=== PATIENT | male | born 2000 | race Caucasian/White ===

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

== ENCOUNTER 2019-01-18 10:26 | Emergency (ER) | payer OTHER ==
[~2019-01-18] VITALS: Ht 182.9 cm; Wt 68.0 kg
[~2019-01-18 10:26] MED LIST: HYOS0.1283 SL; ONDA4TAB8 SL
--- OUTSIDE RECORDS SUMMARY | 2019-01-18 10:33 | XMS REPORT ---
Author Author PO GRACE Organization [facility] Address [address] [place] [address] Care Team Providers Care Geochemist Name Role Phone PO GRACE Unavailable PROBLEMS Type Condition ICD9-CM Code [id number] Code Onset Dates Condition Status SNOMED Code Problem Gastritis, bile acid reflux K29.60 Active 06854227 ALLERGIES No Information ENCOUNTERS Encounter Location Date Diagnosis [facility] [id number] [place] [phone] 15 Sep, 2017 [facility] [address] [address] 14 Sep, 2017 Gastritis, bile acid reflux K29.60 ; Acute bilateral low back pain without sciatica M54.5 and Abdominal pain, generalized R10.84 [facility] [id number] [place] [phone] 06 Sep, 2017 Right groin hernia K40.90 [facility] [id number] [place] [phone] 06 Sep, 2017 Unilateral recurrent inguinal hernia without obstruction or gangrene K40.91 [facility] [id number] [place] [phone] December, IMMUNIZATIONS No Known Immunizations SOCIAL HISTORY Never Assessed REASON FOR VISIT XRay Results PLAN OF CARE VITAL SIGNS MEDICATIONS Unknown Medications RESULTS No Results PROCEDURES No Known procedures INSTRUCTIONS MEDICATIONS ADMINISTERED No Known Medications MEDICAL (GENERAL) HISTORY Type Description Date Medical History Postural orthostatic tachycardia syndrome Medical History Bulging lumbar disc Medical History Ruptured disk Medical History Depression in pediatric patient Medical History History of post traumatic stress disorder Surgical History hernia repair 1999 Hospitalization History [facility] bulging disk 2016
--- OUTSIDE RECORDS SUMMARY | 2019-01-18 10:33 | XMS REPORT ---
Author Author GILMAR STARK [facility] Address [address] [place] [address] Care Team Providers Care Credentials Specialist Name Role Phone GILMAR STARK Unavailable PROBLEMS Type Condition ICD9-CM Code [id number] Code Onset Dates Condition Status SNOMED Code Problem Gastritis, bile acid reflux K29.60 Active [id number] ALLERGIES No Information ENCOUNTERS Encounter Location Date Diagnosis [place] [address] [phone] 15 Sep, 2017 [place] [address] [address] 14 Sep, 2017 Gastritis, bile acid reflux K29.60 ; Acute bilateral low back pain without sciatica M54.5 and Abdominal pain, generalized R10.84 [facility] [address] [phone] 06 Sep, 2017 Right groin hernia K40.90 [facility] [id number] [place] [phone] 06 Sep, 2017 Unilateral recurrent inguinal hernia without obstruction or gangrene K40.91 [facility] [address] [address] December, IMMUNIZATIONS No Known Immunizations SOCIAL HISTORY Never Assessed REASON FOR VISIT Hernia has been coming in/out for about 1 week- has history of repair at age 1 Denice Trujillo PLAN OF CARE Activity Details Follow Up this afternoon with Cyrus Ortiz APRN Reason: VITAL SIGNS Weight 157.6 lbs 2017-09-25 Temperature 98.1 degrees Fahrenheit 2017-09-25 Heart Rate 60 bpm 2017-09-25 Respiratory Rate 18 2017-09-25 Blood pressure systolic 112 mmHg 2017-09-25 Blood pressure diastolic 60 mmHg 2017-09-25 MEDICATIONS Medication Instructions Dosage Frequency Start Date End Date Duration Status Hydrocodone-Acetaminophen 5-325 MG Orally every 6 hrs 1 tablet as needed 6h Not-Taking Flexeril Not-Taking RESULTS No Results PROCEDURES No Known procedures [...]
--- OUTSIDE RECORDS SUMMARY | 2019-01-18 10:33 | XMS REPORT ---
Author Author PO GRACE Organization [facility] Address [address] [place] [address] Care Team Providers Care Engine Boss Name Role Phone PO GRACE Unavailable PROBLEMS Type Condition ICD9-CM Code KXX90-OI Code Onset Dates Condition Status SNOMED Code Problem Gastritis, bile acid reflux K29.60 Active [id number] ALLERGIES No Known Allergies ENCOUNTERS Encounter Location Date Diagnosis [address] [phone] 15 Sep, [address] [address] Sep, Gastritis, bile acid reflux K29.60 ; Acute bilateral low back pain without sciatica M54.5 and Abdominal pain, generalized R10.84 [facility] [address] [address] Sep, Right groin hernia K40.90 [facility] [address] [address] Sep, Unilateral recurrent inguinal hernia without obstruction or gangrene K40.91 [facility] [address] [place] [phone] December, IMMUNIZATIONS No Known Immunizations SOCIAL HISTORY Never Assessed REASON FOR VISIT Abdominal pain--tjanssenMA, abdominal pain happening for the past 2 months. ER visit administered levison and zofran last night. , No help. Feels as if there is pressure buillding up on left side, shooting pain down through his chest. PLAN OF CARE VITAL SIGNS Height 70.25 in 2017-10-03 Weight 148.1 lbs 2017-10-03 Temperature 98.0 degrees Fahrenheit 2017-10-03 Heart Rate 76 bpm 2017-10-03 Respiratory Rate 20 2017-10-03 BMI 21.10 kg/m2 2017-10-03 Blood pressure systolic 112 mmHg 2017-10-03 Blood pressure diastolic 72 mmHg 2017-10-03 MEDICATIONS Unknown Medications RESULTS No Results PROCEDURES Procedure Date Ordered Result Body Site X-RAY EXAM ABDOMEN 2 VIEWS Oct 03, 2017 IMMUNOASSAY,INFECTIOUS AGENT Oct 03, 2017 VENIPUNCT, ROUTINE* Oct 03, 2017 COMPLETE CBC W/AUTO DIFF WBC Oct 03, 2017 COMPREHEN METABOLIC PANEL Oct 03, 2017 URINALYSIS, AUTO, W/O SCOPE Oct 03, 2017 DRUG TEST PRSMV DIR OPT OBS Oct 03, 2017 INSTRUCTIONS MEDICATIONS ADMINISTERED No Known Medications MEDICAL (GENERAL) HISTORY Type Description Date Medical History Postural orthostatic tachycardia syndrome Medical History Bulging lumbar disc Medical History Ruptured disk Medical History Depression in pediatric patient Medical History History of post traumatic stress disorder Surgical History hernia repair 1999 Hospitalization History [facility] bulging disk 2016
[2019-01-18] MEDS ORDERED: IBUPROFEN 800 MG (MOTRIN) TAB PO STA (10:38)
[2019-01-18] MEDS ORDERED: HYDROcodone/APAP 7.5 MG/325 MG (LORTAB, LORCET PLUS) TABLET PO STA (10:38)
--- NOTE | 2019-01-18 10:52 | NUR ---
MALE WITH PATIENT CALL THEIR BOSS AND THEY DO NOT NEED DRUG SCREEN.
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
--- NOTE | 2019-01-18 11:15 | NUR ---
MALE WITH PATIENT CAME TO TO DESK AND STATES THEY DO NEED A DRUG SCREEN . WILL CALL [facility]
--- NOTE | 2019-01-18 11:22 | NUR ---
MALE WITH PATIENT NOW CAME TO DESK AND SAID NOT TO DO IT. WILL CALL [facility]
--- NOTE | 2019-01-18 11:37 | Diagnostic Imaging Report ---
INDICATION: Injury to the left knee. TIME OF EXAM: 11:13 a.m. FINDINGS: Three views of the left knee show normal alignment. Joint spaces are well-maintained. Articular surfaces are smooth. No fracture, dislocation or effusion is seen. IMPRESSION: No acute bony abnormality is detected. Dictated by: Dictated on workstation # [id number]
[2019-01-18 12:03] VITALS: BP 120/90
--- NOTE | 2019-01-18 12:03 | NUR ---
ON DISCHARGE PATIENT VOICED THAT HE HAS USED CRUTCHES BEFORE.
== END 2019-01-18 12:03 | disposition home or self-care (01) ==
LOC: EDUNIT# 10:26 → ER 10:29
DX: S80.02XA Contusion of left knee, initial encounter (principal); F12.10 Cannabis abuse, uncomplicated; Z77.22 Contact with and (suspected) exposure to environmental tobacco smoke (acute) (chronic); Z98.890 Other specified postprocedural states; W31.89XA Contact with other specified machinery, initial encounter; Y92.59 Other trade areas as the place of occurrence of the external cause; Y99.0 Civilian activity done for income or pay
CPT/HCPCS: 73562

== ENCOUNTER 2019-01-22 10:41 | Emergency (ER) | payer OTHER ==
[~2019-01-22] VITALS: Ht 182.9 cm; Wt 70.3 kg
--- OUTSIDE RECORDS SUMMARY | 2019-01-22 10:45 | XMS REPORT | Continuity of Care Document ---
Author Organization Unknown Address Unknown Allergies There is no data. Medications There is no data. Problems There is no data. Procedures There is no data. Results Test Result Range CBC - 10/03/17 16:22 WHITE BLOOD CELL COUNT 6.3 Thousand/uL 3.8-10.8 RED BLOOD CELL COUNT 5.43 Million/uL 4.20-5.80 HEMOGLOBIN 15.7 g/dL 13.2-17.1 HEMATOCRIT 46.6 % 38.5-50.0 MCV 85.8 fL 80.0-100.0 MCH 28.9 pg 27.0-33.0 MCHC 33.7 g/dL 32.0-36.0 RDW 12.9 % 11.0-15.0 PLATELET COUNT 294 Thousand/uL 140-400 MPV 11.2 fL 7.5-12.5 ABSOLUTE NEUTROPHILS 4171 cells/uL 9868-9127 ABSOLUTE LYMPHOCYTES 1613 cells/uL 850-3900 ABSOLUTE MONOCYTES 441 cells/uL 200-950 ABSOLUTE EOSINOPHILS 57 cells/uL 15-500 ABSOLUTE BASOPHILS 19 cells/uL 0-200 NEUTROPHILS 66.2 % NRG LYMPHOCYTES 25.6 % NRG MONOCYTES 7.0 % NRG EOSINOPHILS 0.9 % NRG BASOPHILS 0.3 % NRG Encounters ACCT No. Visit Date/Time Discharge Status Pt. Type Provider Facility Loc./Unit Complaint [id number] 01/19/2019 15:40:00 ACT Outpatient PO GRACE APRN [facility] [id number] 10/03/2017 15:20:00 Document Registration
--- NOTE | 2019-01-22 10:55 | ED Back Pain ---
General Stated Complaint: BACK PAIN Source of Information: Patient Exam Limitations: No Limitations History of Present Illness Date Seen by Provider: Jan 22, 2019 Time Seen by Provider: 10:44 Initial Comments Patient presents to ER by private conveyance with chief complaint that he has an aggravation of his old back pain. He says he was discovered to have bulging disks in high school. 3 days ago he had an injury at work where a forklift pinned his left knee against the wall. Since then he has had it wrapped with an Levi bandage, using ibuprofen and walking with a cane. Yesterday however he started getting some severe worsening of the pain in his back when he woke up this morning was having burning running down his buttock all the way down to his heel. He has some numbness and tingling and feels like his left knee is about to buckle and give out from underneath him if he wasn't using the cane. No history of back surgery. No history of recent trauma to the back. He took an ibuprofen this morning about 8 and his mom gave him an Ultram neither of which helped. Patient says he came from work and was told by his boss to tell us that this was related to work comp. Negative for incontinence of bowel or bladder nor urinary hesitancy. No saddle anesthesia. Patient was seen 4 days ago for being struck and pen by a pallet luiza with a pallet on it against his left knee. Knee x-ray was unremarkable for osseous changes. Allergies and Home Medications Allergies Coded Allergies: No Known Drug Allergies (Unverified , 10/02/17) Patient Home Medication List Home Medication List Reviewed: Yes Review of Systems Constitutional: No chills, No fever EENTM: No ear discharge, No ear pain Respiratory: No cough, No phlegm Cardiovascular: No chest pain, No edema Past Fwvfhxa-Vyhgsp-Dutoos Hx Patient Social History Alcohol Use: Denies Use Recreational Drug Use: Yes Drug of Choice: CANNIBUS Smoking Status: Former Smoker Type Used: Electronic/Vapor 2nd Hand Smoke Exposure: Yes Recent Foreign Travel: No Contact w/Someone Who Travel: No Recent Hopitalizations: No Immunizations Up To Date Tetanus Booster (TDap): Unknown PED Vaccines UTD: Yes Seasonal Allergies Seasonal Allergies: No Past Medical History Surgeries: Yes (HERNIA) Testicular Respiratory: No Cardiac: Yes (orthostatic hypotension) Neurological: No Genitourinary: No Gastrointestinal: No Musculoskeletal: Yes Back Injury Endocrine: No HEENT: No Cancer: No Psychosocial: No Integumentary: No Blood Disorders: No Family Medical History No Pertinent Family Hx Physical Exam Vital Signs Vital Signs - First Documented 01/22/19 10:43 Temp 98.0 Pulse 79 Resp 18 B/P (MAP) 116/72 (87) Pulse Ox 99 O2 Delivery Room Air Capillary Refill : Height, Weight, BMI Height: 6'11.00" Weight: 150lbs. oz. 68.760572ax; 14.06 BMI Method:Stated General Appearance: WD/WN, Mild Distress HEENT: PERRL/EOMI, Pharynx Normal, Moist Mucous Membranes Neck: Full Range of Motion, Normal Inspection Cardiovascular: Regular Rate, Rhythm, No Edema, Normal Peripheral Pulses Respiratory: No Accessory Muscle Use, No Respiratory Distress Back: Vertebral Tenderness (lumbar spine midline as well as left lateral. Direct palpation over the L5-S1 facet joint re-creates his sciatic symptoms.) Extremity: Normal Capillary Refill, Normal Inspection, Normal Range of Motion, Non Tender, No Pedal Edema Neurologic/Psychiatric: Alert, Oriented x3, No Motor/Sensory Deficits, Other (deep tendon patellar reflexes 2 out of 4 bilateral) Skin: Normal Color, Warm/Dry Progress/Results/Core Measures Results/Orders My Orders Orders - TALIA HOLLAND Ketorolac Injection (Toradol Injection) (01/22/19 11:00) Acetaminophen Tablet (Tylenol Tablet) (01/22/19 11:00) Ct Lumbar Spine Wo (01/22/19 10:51) Medications Given in ED Current Medications Medications Dose Ordered Sig/Modesta Route Start Time Stop Time Status Last Admin Dose Admin Acetaminophen 1,000 mg ONCE ONCE PO 01/22/19 11:00 01/22/19 11:01 DC 01/22/19 11:05 1,000 MG Ketorolac Tromethamine 30 mg ONCE ONCE IM 01/22/19 11:00 01/22/19 11:01 DC 01/22/19 11:05 30 MG Vital Signs/I&O 01/22/19 10:43 Temp 98.0 Pulse 79 Resp 18 B/P (MAP) 116/72 (87) Pulse Ox 99 O2 Delivery Room Air Progress Progress Note : Time: 11:27 Progress Note The patient's having some pain that is sharp, stinging 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 No recent history of trauma but with his given history of back problems and now his left sided neuropathic pain in the sciatic distribution radiating down to his heel and causing his knee to buckle he would be reasonable to offer him a CT scan of the back. Most likely his left knee injury is caused him to walk favoring his left knee and have aggravated his chronic pain. He says he is in pain every morning when he wakes up from his back but today is way worse and the sciatic pain is new. Toradol for pain. The patient has discussed the risks, benefits and alternatives with this provider and agreed to do a CT noncontrast of the lumbar spine. Toradol and Tylenol for discomfort. He is recently received ibuprofen so we'll give him 30 mg IM. Diagnostic Imaging Diagonstic Imaging: CT (noncontrast) Plain Films/CT/US/NM/MRI: other (lumbar spine) Comments [facility], [place] NAME: SANJEEV [facility] REC#: [id number] PT STATUS: REG ER : 2000 PHYSICIAN: TALIA HOLLAND MD ADMIT DATE: 01/22/19/ER Draft Date of Exam:01/22/19 CT LUMBAR SPINE WO PROCEDURE: CT lumbar spine without contrast. TECHNIQUE: Multiple contiguous axial images were obtained through the lumbar spine without the use of intravenous contrast. Sagittal and coronal reformations were then performed. Auto Exposure Controls were utilized during the CT exam to meet ALARA standards for radiation dose reduction. INDICATION: Low back pain. FINDINGS: Curvature and alignment of the lumbar spine is normal. Vertebral body heights are well-maintained. Disc spaces are fairly well preserved. No fracture or subluxation is identified. No spondylolysis or spondylolisthesis is seen. Integrity of the central canal is difficult to assess by CT. If there is concern for disc pathology, MRI could be performed. IMPRESSION: No acute bony abnormality is detected. Dictated on workstation # [id number] Dict: 01/22/19 1124 Trans: 01/22/19 1127 [id number] Interpreted by: ISABEL WHITMAN MD Electronically signed by: Reviewed: Reviewed by Me Departure Impression Primary Impression: Lumbago with sciatica, left side Qualified Codes: M54.42 - Lumbago with sciatica, left side Disposition: 01 HOME, SELF-CARE Condition: Stable Departure-Patient Inst. Decision time for Depature: 11:43 Referrals: [facility] (PCP/Family) Primary Care Physician Patient Instructions: Low Back Pain (DC) Add. Discharge Instructions: Use heating pads, topical creams such as icy hot and wear a back brace on the days that helps. If you have muscle spasms in your back then one tablet of cyclobenzaprine every 8 hours will help. Continue ibuprofen 800 mg every 8 hours or Naprosyn 2 capsules twice a day in addition to Tylenol 1000 mg every 8 hours as necessary for pain. Use the cyclobenzaprine 1 tablet every 8 hours as necessary for muscle spasms. If it makes you then too drowsy break in half and just take one half of a tablet every 8 hours. Scripts Cyclobenzaprine HCl (Cyclobenzaprine HCl) 10 Mg Tablet 10 MG PO Q8H PRN for SPASMS, #15 TAB 0 Refills Prov: TALIA HOLLAND 01/22/19 Work/School Note: Work Release Form Date Seen in the Emergency Department: Jan 22, 2019 Return to Work: Jan 23, 2019 Restrictions: Need Release from Doctor Other Restrictions Listed Below: Do not lift more than 40 pounds until 01/29/19. TALIA HOLLAND Jan 22, 2019 10:55
[2019-01-22] MEDS ORDERED: ACETAMINOPHEN 500 MG TAB (TYLENOL) PO ONE (11:00)
[2019-01-22] MEDS ORDERED: KETOROLAC 30 MG/ML VIAL IM ONE (11:00)
--- NOTE | 2019-01-22 11:28 | Diagnostic Imaging Report ---
PROCEDURE: CT lumbar spine without contrast. TECHNIQUE: Multiple contiguous axial images were obtained through the lumbar spine without the use of intravenous contrast. Sagittal and coronal reformations were then performed. Auto Exposure Controls were utilized during the CT exam to meet ALARA standards for radiation dose reduction. INDICATION: Low back pain. FINDINGS: Curvature and alignment of the lumbar spine is normal. Vertebral body heights are well-maintained. Disc spaces are fairly well preserved. No fracture or subluxation is identified. No spondylolysis or spondylolisthesis is seen. Integrity of the central canal is difficult to assess by CT. If there is concern for disc pathology, MRI could be performed. IMPRESSION: No acute bony abnormality is detected. Dictated by: Dictated on workstation # [id number]
[2019-01-22] MEDS ORDERED: CYCL10TA9 PO (11:43)
[2019-01-22 11:47] VITALS: BP 116/72
== END 2019-01-22 11:47 | disposition home or self-care (01) ==
LOC: EDUNIT# 10:41 → ER 10:41
DX: M54.42 Lumbago with sciatica, left side (principal); F12.10 Cannabis abuse, uncomplicated; Z87.891 Personal history of nicotine dependence; Z98.890 Other specified postprocedural states
CPT/HCPCS: 72131; 96372

== ENCOUNTER 2019-08-04 03:17 | Emergency (ER) | payer SELFPAY ==
[~2019-08-04] VITALS: Ht 182.8 cm; Wt 72.5 kg
[~2019-08-04 03:17] MED LIST changes: +CYCL10TA9 PO
--- NOTE | 2019-08-04 03:20 | NUR ---
NOTIFIED NURSING STAFF AT CHECKIN OF PT HAVING CHEST PAIN
[2019-08-04] MEDS ORDERED: ONDANSETRON 4 MG (ZOFRAN) ORAL DISSOLVE TAB PO STA (03:31)
--- NOTE | 2019-08-04 03:35 | ED GI ---
General Stated Complaint: CHEST PAIN Source of Information: Patient, Family (mom) Exam Limitations: No Limitations History of Present Illness Date Seen by Provider: Aug 04, 2019 Time Seen by Provider: 03:22 Initial Comments Patient presents ER by private conveyance with mom and chief complaint of one day nausea vomiting and diarrhea. She gave him some Compazine about 2100 yesterday and he said it did not help much with his nausea. She had some Motrin because he felt warm to the touch but she did not have a thermometer. She said he vomited the Motrin up. He does not have any history of abdominal surgeries, b ut he does have chills and malaise. Not had any cough runny nose sore throat or ear pain. No sick contacts. No travel outside the [facility] [place]. His diarrhea does not have any blood in it. 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 He does not take any medications routinely. Has no allergies to medicines. He has no personal history of heart disease. His dad had his first heart attack at age 40 something. Allergies and Home Medications Allergies Coded Allergies: No Known Drug Allergies (Unverified , 10/02/17) Home Medications Cyclobenzaprine HCl 10 Mg Tablet, 10 MG PO Q8H PRN for SPASMS Prescribed by: TALIA HOLLAND on 01/22/19 1143 Ondansetron 4 Mg Tab.rapdis, 4 MG PO Q6H PRN for NAUSEA/VOMITING-1ST LINE Prescribed by: TALIA HOLLAND on 08/04/19 0356 Patient Home Medication List Home Medication List Reviewed: Yes Review of Systems Review of Systems Constitutional: chills; No diaphoresis; fever (subjective), malaise EENTM: No Blurred Vision, No Double Vision Respiratory: Denies Cough, Denies Shortness of Air Cardiovascular: Chest Pain (left side of her chest reproducible to palpation or deep inspiration.); Denies Edema Gastrointestinal: Abdominal Pain (all over anterior and posterior ), Nausea, Poor Appetite, Poor Fluid Intake, Vomiting Genitourinary: Denies Burning, Denies Discharge, Denies Drainage Musculoskeletal: No back pain, No joint pain Skin: No pruritus, No rash Psychiatric/Neurological: Denies Headache, Denies Paresthesia All Other Systems Reviewed Negative Unless Noted: Yes Past Qahzizw-Ghgsgz-Bttixz Hx Patient Social History Alcohol Use: Denies Use Recreational Drug Use: Yes Drug of Choice: CANNIBUS Smoking Status: Former Smoker Type Used: Electronic/Vapor 2nd Hand Smoke Exposure: Yes Recent Foreign Travel: No Contact w/Someone Who Travel: No Recent Hopitalizations: No Immunizations Up To Date Tetanus Booster (TDap): Unknown PED Vaccines UTD: Yes Seasonal Allergies Seasonal Allergies: No Past Medical History Surgeries: Yes (HERNIA) Testicular Respiratory: No Cardiac: Yes (orthostatic hypotension) Neurological: No Genitourinary: No Gastrointestinal: No Musculoskeletal: Yes Back Injury Endocrine: No HEENT: No Cancer: No Psychosocial: No Integumentary: No Blood Disorders: No Family Medical History No Pertinent Family Hx Physical Exam Vital Signs Vital Signs - First Documented 08/04/19 03:25 Temp 37.2 Pulse 81 Resp 20 B/P (MAP) 124/71 (88) Pulse Ox 100 Capillary Refill : Height/Weight/BMI Height: 6'11.00" Weight: 155lbs. oz. 70.633707gy; 14.06 BMI Method:Stated General Appearance: WD/WN, mild distress HEENT: PERRL/EOMI, normal ENT inspection, TMs normal, pharynx normal (oropharynx mucosa is moist) Neck: full range of motion, normal inspection Respiratory: chest non-tender, lungs clear, normal breath sounds, no respiratory distress, no accessory muscle use Cardiovascular: normal peripheral pulses, regular rate, rhythm Peripheral Pulses: 2+ Radial Pulses (R), 2+ Radial Pulses (L) Gastrointestinal: normal bowel sounds, soft, no organomegaly, tenderness (all 4 quadrants mildly tender to palpation), other (Negative for McBurney's point rebound tenderness, Rovsing sign, mesenteric signs.) Extremities: normal inspection, no pedal edema, normal capillary refill Neurologic/Psychiatric: alert, normal mood/affect, oriented x 3 Skin: normal color, warm/dry Progress/Results/Core Measures Results/Orders Lab Results Laboratory Tests Test 08/04/19 04:06 08/04/19 05:03 Range/Units White Blood Count 7.8 4.3-11.0 10^3/uL Red Blood Count 4.67 4.35-5.85 10^6/uL Hemoglobin 13.7 13.3-17.7 G/DL Hematocrit 41 40-54 % Mean Corpuscular Volume 87 80-99 FL Mean Corpuscular Hemoglobin 29 25-34 PG Mean Corpuscular Hemoglobin Concent 34 32-36 G/DL Red Cell Distribution Width 12.6 10.0-14.5 % Platelet Count 221 130-400 10^3/uL Mean Platelet Volume 11.5 H 7.4-10.4 FL Neutrophils (%) (Auto) 90 H 42-75 % Lymphocytes (%) (Auto) 5 L 12-44 % Monocytes (%) (Auto) 6 0-12 % Eosinophils (%) (Auto) 0 0-10 % Basophils (%) (Auto) 0 0-10 % Neutrophils # (Auto) 7.0 1.8-7.8 X 10^3 Lymphocytes # (Auto) 0.4 L 1.0-4.0 X 10^3 Monocytes # (Auto) 0.5 0.0-1.0 X 10^3 Eosinophils # (Auto) 0.0 0.0-0.3 10^3/uL Basophils # (Auto) 0.0 0.0-0.1 10^3/uL Neutrophils % (Manual) 81 % Lymphocytes % (Manual) 9 % Monocytes % (Manual) 7 % Band Neutrophils 3 % Blood Morphology Comment NORMAL Prothrombin Time 14.7 12.2-14.7 SEC INR Comment 1.1 0.8-1.4 Activated Partial Thromboplast Time 29 24-35 SEC Sodium Level 137 135-145 MMOL/L Potassium Level 3.9 3.6-5.0 MMOL/L Chloride Level 101 98-107 MMOL/L Carbon Dioxide Level 23 21-32 MMOL/L Anion Gap 13 5-14 MMOL/L Blood Urea Nitrogen 14 7-18 MG/DL Creatinine 0.94 0.60-1.30 MG/DL Estimat Glomerular Filtration Rate > 60 BUN/Creatinine Ratio 15 Glucose Level 112 H 70-105 MG/DL Calcium Level 9.7 8.5-10.1 MG/DL Corrected Calcium 8.5-10.1 MG/DL Magnesium Level 1.7 1.6-2.4 MG/DL Total Bilirubin 1.2 H 0.1-1.0 MG/DL Aspartate Amino Transf (AST/SGOT) 17 5-34 U/L Alanine Aminotransferase (ALT/SGPT) 13 0-55 U/L Alkaline Phosphatase 70 40-136 U/L Myoglobin 24.5 10.0-92.0 NG/ML Troponin I < 0.028 <0.028 NG/ML Total Protein 7.3 6.4-8.2 GM/DL Albumin 4.7 H 3.2-4.5 GM/DL Lipase 17 8-78 U/L Urine Color DARK YELLOW Urine Clarity CLEAR Urine pH 7.5 5-9 Urine Specific Sharon 1.015 L 1.016-1.022 Urine Protein NEGATIVE NEGATIVE Urine Glucose (UA) NEGATIVE NEGATIVE Urine Ketones NEGATIVE NEGATIVE Urine Nitrite NEGATIVE NEGATIVE Urine Bilirubin NEGATIVE NEGATIVE Urine Urobilinogen 1.0 < = 1.0 MG/DL Urine Leukocyte Esterase NEGATIVE NEGATIVE Urine RBC (Auto) NEGATIVE NEGATIVE Urine RBC NONE /HPF Urine WBC NONE /HPF Urine Squamous Epithelial Cells 2-5 /HPF Urine Crystals NONE /LPF Urine Bacteria NEGATIVE /HPF Urine Casts NONE /LPF Urine Mucus LARGE H /LPF Urine Culture Indicated NO Urine Opiates Screen POSITIVE H NEGATIVE Urine Oxycodone Screen NEGATIVE NEGATIVE Urine Methadone Screen NEGATIVE NEGATIVE Urine Propoxyphene Screen NEGATIVE NEGATIVE Urine Barbiturates Screen NEGATIVE NEGATIVE Ur Tricyclic Antidepressants Screen NEGATIVE NEGATIVE Urine Phencyclidine Screen NEGATIVE NEGATIVE Urine Amphetamines Screen NEGATIVE NEGATIVE Urine Methamphetamines Screen NEGATIVE NEGATIVE Urine Benzodiazepines Screen NEGATIVE NEGATIVE Urine Cocaine Screen NEGATIVE NEGATIVE Urine Cannabinoids Screen POSITIVE H NEGATIVE My Orders Orders - AMALIA,TALIA J Ekg Tracing (08/04/19 03:31) Ondansetron Oral Dissolve Tab (Zofran (08/04/19 03:31) Orthostatic Vital Signs (Adult (08/04/19 03:51) Lactated Ringers (Lr 1000 Ml Iv Solution (08/04/19 04:07) Cbc With Automated Diff (08/04/19 04:10) Magnesium (08/04/19 04:10) Chest 1 View, Ap/Pa Only (08/04/19 04:10) Comprehensive Metabolic Panel (08/04/19 04:10) Myoglobin Serum (08/04/19 04:10) Protime With Inr (08/04/19 04:10) Partial Thromboplastin Time (08/04/19 04:10) Lipid Panel (08/05/19 06:00) Ed Iv/Invasive Line Start (08/04/19 04:10) Lipase (08/04/19 04:10) Troponin I (08/04/19 04:10) Aspirin Chewable Tablet (Baby Aspirin Ch (08/04/19 04:15) Morphine Injection (Morphine Injection (08/04/19 04:10) Ua Culture If Indicated (08/04/19 04:10) Drug Screen Stat (Urine) (08/04/19 04:10) Ed Iv/Invasive Line Start (08/04/19 04:10) Lactated Ringers (Lr 1000 Ml Iv Solution (08/04/19 04:10) Manual Differential (08/04/19 04:06) Pantoprazole Injection (Protonix Injecti (08/04/19 05:15) Ketorolac Injection (Toradol Injection) (08/04/19 05:15) Ketorolac Injection (Toradol Injection) (08/04/19 05:08) Medications Given in ED Current Medications Medications Dose Ordered Sig/Modesta Route Start Time Stop Time Status Last Admin Dose Admin Aspirin 324 mg ONCE ONCE PO 08/04/19 04:15 08/04/19 04:16 DC 08/04/19 04:15 324 MG Ketorolac Tromethamine 30 mg ONCE ONCE IVP 08/04/19 05:15 08/04/19 05:16 DC 08/04/19 05:15 30 MG Lactated Ringer's 1,000 ml @ 0 mls/hr Q0M ONCE IV 08/04/19 04:10 08/04/19 04:14 DC 08/04/19 04:14 1,000 MLS/HR Pantoprazole 40 mg ONCE ONCE IV 08/04/19 05:15 08/04/19 05:16 DC 08/04/19 05:14 40 MG Vital Signs/I&O 08/04/19 08/04/19 03:25 03:54 Temp 37.2 Pulse 81 57 54 77 Resp 20 B/P (MAP) 124/71 (88) 156/87 (110) 150/71 (97) 126/85 (99) Pulse Ox 100 Progress Progress Note #1: Time: 03:53 Progress Note Viral gastroenteritis and colitis is most likely. Appendicitis much less likely. He has normal aseptic vital signs heart rate in the 50s. Plan to get a set of orthostatic vital signs and an EKG and give him some Zofran ODT. We'll then reexamine him. Progress Note #2: Time: 04:09 Progress Note Orthostatics demonstrate the patient goes from 156 systolic supine down to 126 on standing and heart rate elevates from 54-77. Plan to drop a line in him and give him some IV fluids and check some labs. The patient is clutching his chest, anxious the stating it hurts. Pericarditis, myocarditis? We'll give him some aspirin and 4 of morphine. Progress Note #3: Time: 05:32 Progress Note Labs are unremarkable. Gave him some Toradol since she still having some discomfort in that improved his symptoms more than anything. Nausea is under control. Initial ECG Impression Date: Aug 04, 2019 Initial ECG Impression Time: 03:32 Initial ECG Rate: 60 Initial ECG Rhythm: Normal Sinus Initial ECG Intervals: Normal Initial ECG Impression: Normal, Nonspecific Changes Initial ECG Comparisson: No Previous ECG Available Comment No clinically relevant ST elevation or depression. Diagnostic Imaging Diagonstic Imaging: Xray Plain Films/CT/US/NM/MRI: chest (1v) Comments Unremarkable one view chest. Reviewed: Reviewed by Me Departure Impression Primary Impression: Gastroenteritis and colitis, viral Additional Impression: Chest wall pain Disposition: HOME, SELF-CARE Condition: Stable Departure-Patient Inst. Decision time for Depature: 05:33 Referrals: [facility] (PCP/Family) Primary Care Physician Patient Instructions: Viral Gastroenteritis, Adult (DC), Diarrhea in Adolescents and Adults Add. Discharge Instructions: Drink lots of fluids. Sports drinks are encouraged. If you have nausea take one tablet of Zofran every 6 hours as needed. If your diarrhea persists for more than 24-48 hours or you don't feel you keep up fluid intake then obtain loperamide. Loperamide 2 tablets followed by one tablet every 4 hours afterwards if you're still having watery, loose stools. If your symptoms persist for more than 3-5 days or you're unable to keep up with your fluid intake or you have intractable nausea vomiting or other worrisome concerns such as pain that is not relieved by Tylenol, ibuprofen or heating pads then you should follow-up with the ER. Liquid diet until your nausea goes away. Stick to a bland diet of foods such as bananas, rice, applesauce and toast until your diarrhea improves. Scripts Ondansetron (Ondansetron Odt) 4 Mg Tab.rapdis 4 MG PO Q6H PRN for NAUSEA/VOMITING-1ST LINE, #10 TAB 0 Refills Prov: TALIA HOLLAND 08/04/19 Work/School Note: Work Release Form Date Seen in the Emergency Department: Aug 04, 2019 Return to Work: Aug 07, 2019 Restrictions: No Restrictions TALIA HOLLAND Aug 04, 2019 03:35 POS
[2019-08-04 03:54] VITALS: BP_SYST 126; BP_SYST 150; BP_SYST 156; BP_DIAS 71; BP_DIAS 85; BP_DIAS 87
[2019-08-04] MEDS ORDERED: ONDA4TAB11 PO (03:56)
[2019-08-04] MEDS ORDERED: LACTATED RINGERS 1,000 ML IV ONE ×2 (04:07→04:10)
[2019-08-04] MEDS ORDERED: morphine INJ 10 MG/ML 1ML (SYR OR VIAL) IV STA (04:10)
[2019-08-04] MEDS ORDERED: ASPIRIN 81 MG CHEW (CHILDREN'S ASA) PO ONE (04:15)
[2019-08-04 04:25] LABS: BASOPHILS % (AUTO) 0 % (0-10); EOSINOPHILS % (AUTO) 0 % (0-10); HEMATOCRIT 41 % (40-54); HEMOGLOBIN 13.7 G/DL (13.3-17.7); LYMPHOCYTES # (AUTO) 0.4 X 10^3 (1.0-4.0); LYMPHOCYTES % (AUTO) 5 % (12-44); MEAN CORPUSCULAR HEMOGLOBIN 29 PG (25-34); MEAN CORPUSCULAR HGB CONC 34 G/DL (32-36); MEAN CORPUSCULAR VOLUME 87 FL (80-99); MEAN PLATELET VOLUME 11.5 FL (7.4-10.4); MONOCYTES # (AUTO) 0.5 X 10^3 (0.0-1.0); MONOCYTES % (AUTO) 6 % (0-12); NEUTROPHILS % (AUTO) 90 % (42-75); PLATELET COUNT 221 10^3/uL (130-400); RED CELL DISTRIBUTION WIDTH 12.6 % (10.0-14.5); WHITE BLOOD COUNT 7.8 10^3/uL (4.3-11.0)
[2019-08-04 04:33] LABS: INR 1.1 (0.8-1.4); PROTHROMBIN TIME PATIENT 14.7 SEC (12.2-14.7)
[2019-08-04 04:38] LABS: ALANINE AMINOTRANSFERASE 13 U/L (0-55); ALBUMIN 4.7 GM/DL (3.2-4.5); ALKALINE PHOSPHATASE 70 U/L (40-136); BILIRUBIN,TOTAL 1.2 MG/DL (0.1-1.0); BUN/CREATININE RATIO 15; CALCIUM 9.7 MG/DL (8.5-10.1); CARBON DIOXIDE 23 MMOL/L (21-32); CHLORIDE 101 MMOL/L (98-107); CREATININE SERUM 0.94 MG/DL (0.60-1.30); GFR ESTIMATED > 60; GLUCOSE 112 MG/DL (70-105); LIPASE 17 U/L (8-78); MAGNESIUM 1.7 MG/DL (1.6-2.4); POTASSIUM 3.9 MMOL/L (3.6-5.0); SODIUM 137 MMOL/L (135-145); TOTAL PROTEIN 7.3 GM/DL (6.4-8.2)
[2019-08-04 04:55] LABS: BAND NEUTROPHILS 3 %; LYMPHOCYTES % (MANUAL) 9 %; MONOCYTES % (MANUAL) 7 %; NEUTROPHILS % (MANUAL) 81 %; RBC MORPH NORMAL
[2019-08-04] MEDS ORDERED: KETOROLAC 30 MG/ML VIAL ONE (05:08)
[2019-08-04 05:10] LABS: BILIRUBIN,URINE NEGATIVE (NEGATIVE); CLARITY,URINE CLEAR; COLOR,URINE DARK YELLOW; GLUCOSE, URINE (UA) NEGATIVE (NEGATIVE); KETONES,URINE NEGATIVE (NEGATIVE); LEUKOCYTE ESTERASE ,URINE NEGATIVE (NEGATIVE); NITRITE,URINE NEGATIVE (NEGATIVE); PH,URINE 7.5 (5-9); PROTEIN,URINE NEGATIVE (NEGATIVE)
[2019-08-04] MEDS ORDERED: PANTOPRAZOLE 40 MG (PROTONIX) VIAL IV ONE (05:15)
[2019-08-04] MEDS ORDERED: KETOROLAC 30 MG/ML VIAL IVP ONE (05:15)
[2019-08-04 05:20] LABS: BACTERIA,URINE NEGATIVE /HPF
[2019-08-04 05:26] LABS: AMPHETAMINE SCREEN, URINE NEGATIVE (NEGATIVE); BARBITURATE SCREEN URINE NEGATIVE (NEGATIVE); BENZODIAZEPINES SCREEN URINE NEGATIVE (NEGATIVE); CANNABINOID SCREEN, URINE POSITIVE (NEGATIVE); COCAINE SCREEN URINE NEGATIVE (NEGATIVE); METHADONE STAT NEGATIVE (NEGATIVE); METHAMPHETAMINE SCREEN URINE S NEGATIVE (NEGATIVE); OPIATE SCREEN URINE POSITIVE (NEGATIVE); OXYCODONE STAT NEGATIVE (NEGATIVE); PROPOXYPHENE STAT NEGATIVE (NEGATIVE); TRICYCLIC ANTIDEPRESSANTS SCRE NEGATIVE (NEGATIVE)
[2019-08-04 05:37] VITALS: BP 117/59
--- NOTE | 2019-08-04 06:37 | Diagnostic Imaging Report ---
INDICATION: Chest pain and abdominal pain. FINDINGS: Portable upright view of the chest demonstrates lungs to be clear. Heart, mediastinum, pulmonary vascularity and visualized bony thorax are normal. IMPRESSION: Negative chest. Dictated by: Dictated on workstation # [id number]
== END 2019-08-04 05:43 | disposition home or self-care (01) ==
LOC: EDUNIT# 03:17 → ER 03:18
DX: A08.4 Viral intestinal infection, unspecified (principal); R07.89 Other chest pain; Z87.891 Personal history of nicotine dependence; Z77.22 Contact with and (suspected) exposure to environmental tobacco smoke (acute) (chronic)
CPT/HCPCS: 36415; 71045; 80053; 80306; 81000; 83690; 83735; 83874; 84484; 85007; 85027; 85610; 85730; 93005